=== PATIENT | female | born 1985 | race Caucasian/White ===

== ENCOUNTER → 2017-08-13 09:45 | Outpatient (CLI) | payer OTHER, SELFPAY ==
--- NOTE | 2017-08-13 09:45 | DT_ITS ---
This patient was seen during an EMR downtime August 10, 2017 - August 17, 2017. This patient may have a combination of paper and electronic documentation or all paper documentation. All documentation is viewable within the e-chart portion of [facility] for each patient visit.
[2017-08-26 09:28] LABS: HPV APTIMA, High Risk Negative (Negative); HPV Reflexed? YES, CHARGE PATIENT
== END ==
PROVIDERS: Visit Provider Nurse Practitioner Women's Health
DX: Z12.4 Encounter for screening for malignant neoplasm of cervix (principal)
CPT/HCPCS: 87624; 88175; G0145

== ENCOUNTER 2022-08-13 18:50 | Inpatient (IN) | payer OTHER, SELFPAY ==
[2022-08-13] MEDS: Lactated Ringers 1,000 ML 50 ML IV (19:30)
[2022-08-13 19:37] VITALS: BMI 31.7
[2022-08-13 20:10] VITALS: BP 149/81; PULSE 109; TEMP 36.9; O2SAT 99
[2022-08-13] MEDS: 0.9% Normal Saline Single 100 ML IV.SOLN. INTRA-UTER (20:20)
[2022-08-13] MEDS: Oxytocin 15 Units/NS 250ml 15 UNITS/250 ML IV.SOLN 2 UNITS IV (20:20)
[2022-08-13 20:47] LABS: Absolute Lymphocyte Count 2.23 X10^3/uL (0.83-4.51); Absolute Neutrophil Count 7.1 X10^3/uL (2.0-7.7); Basophil# 0.02 X10^3/uL; Basophil% 0.2 % (0-1); Eosinophil# 0.04 X10^3/uL; Eosinophils% 0.4 % (0-5); Hematocrit 33.2 % (37-47); Hemoglobin 10.9 g/dL (12.0-15.0); Lymphocyte # 2.23 X10^3/ul (0.83-4.51); Mean Corp Hgb Conc 32.8 g/dL (32-36); Mean Corpuscular Hgb 28.9 pg (27.0-32.0); Mean Corpuscular Volume 88.1 fL (81-99); Mean Platelet Vol. 10.9 fl (6.2-12.0); Monocyte# 0.69 X10^3/uL; Monocyte% 6.8 % (0-10); NRBC Flagged by Analyzer 0 % (0-5); Neutrophil # 7.12 X10^3/uL (2.7-7.7); Neutrophil % 70.1 % (47-70); POSITIVE COUNT YES; Platelet Count 234 K/mm3 (150-450); RBC Distribution Width CV 14.4 % (11.6-14.6); RBC Distribution Width SD 45.8 fl (35.1-43.9); Red Blood Count 3.77 M/mm3 (4.2-5.4); White Blood Count 10.2 K/mm3 (4.4-11.0)
[2022-08-13 21:00] LABS: Differential Indicated SCAN CRITERIA MET
[2022-08-13 21:05] VITALS: BP 137/77; PULSE 93; PULSE 99; O2SAT 94; O2SAT 97
[2022-08-13 21:17] LABS: Differential Comment SCANNED
[2022-08-13 21:24] LABS: Syphilis Antibodies Non-reactive
[2022-08-13 21:49] VITALS: O2SAT 96
[2022-08-13 21:50] VITALS: BP 142/94; PULSE 82
[2022-08-13 23:22] VITALS: TEMP 36.3; O2SAT 98
[2022-08-13 23:23] VITALS: BP 154/82; PULSE 77
[2022-08-14] VITALS (51 sets, daily range): BP systolic 112–160; BP diastolic 56–94; PULSE 84–126; RESP 16–18; TEMP 36.2–37.4; O2SAT 79–99
[2022-08-14] MEDS: LACTATED RINGERS 500 ML 999 ML IV (07:45)
[2022-08-14] MEDS: fentaNYL-bupivacaine (epidural) 100 ML BAG EPIDURAL ×3 (08:29→17:58)
[2022-08-14] MEDS: Lactated Ringers 1,000 ML 200 ML IV ×3 (08:30→19:34)
--- NOTE | 2022-08-14 09:42 | PCM.HP.OB ---
[facility] - General General Date of Admission: 08/13/22 Date of Service: 08/13/22 Chief Complaint: HPI Narrative ELVIN DAVILA, is a 37 F 2 para 0-0-1-0 who presented at 38-0/7 weeks with gestational hypertension. She presented from the office. Preeclampsia labs were negative on 08/13/2022. She denied any headache or visual changes. She had some irregular contractions. No vaginal bleeding or leaking of fluid. Risk benefits and alternatives to induction were reviewed and she agreed to return at 7 PM for induction of labor complicated to date by gestational hypertension, advanced maternal age, she had a low-lying placenta earlier in the but that has resolved. He also had some vaginal bleeding earlier in and COVID-19 during her . Maternal Data Information Final DEBBIE: 08/27/22 Gestational age: 38 0/7 [facility] Medical History (Updated 08/14/22 @ 09:[address] Carolyne Packer MD) Gestational HTN Placental abnormality Home Medications 1 cap DAILY Check with primary doctor 08/13/22 [History Last Taken 08/13/22 12:00 1 cap] Zofran 4 mg PRN PRN Nausea 08/13/22 [History Last Taken Unknown] desogestrel-e.estradiol 0.15 mg-0.02 mg(21)/e.estrad 0.01 mg(5) tablet (Viorele (28)) 1 tab PO QDAY Check with primary doctor 08/13/22 [History Last Taken Unknown] iron 325 mg BID Check with primary doctor 08/13/22 [History Last Taken 08/12/22 08:00 1 tab] Allergy/AdvReac Type Severity Reaction Status Date / Time clobetasol Allergy Swelling Verified 08/13/22 19:43 Surgical History (Updated 08/13/22 @ 19:42 by Marianela Hope) History of surgery Social History Smoking Status: Never smoker History Elective abortions Hx Para 0 Spontaneous abortions Hx # Term Pregnancies Ectopic pregnancies Hx # Pregnancies Multiple births # of living children ROS Constitutional Constitutional: Denies fatigue, fever(s) or malaise Eyes Eyes: Denies change in vision ENT HEENT: Denies dizziness or headache(s) Cardiovascular Cardiovascular: Denies chest pain, dyspnea or lightheadedness Respiratory/Chest Respiratory/Chest: Denies cough or dyspnea Gastrointestinal Gastrointestinal: Denies change in bowel habits Genitourinary Genitourinary: Denies burning urination or genital lesions Integumentary Integumentary: Denies rash Neurologic Neurologic: Denies confusion, dizziness, headache(s), numbness or weakness Vital Signs Vital Signs Vital Signs: 08/13/22 20:10 08/13/22 20:10 08/13/22 20:10 Temperature Temperature Source Tympanic Pulse Rate 109 H Blood Pressure 149/81 H BP Systolic 149 BP Diastolic 81 Pulse Ox 08/13/22 20:10 08/13/22 20:10 08/13/22 21:05 Temperature 98.5 F Temperature Source Pulse Rate Blood Pressure 137/77 H BP Systolic 137 BP Diastolic 77 Pulse Ox 99 08/13/22 21:05 08/13/22 21:05 08/13/22 21:05 Temperature Temperature Source Pulse Rate 99 93 Blood Pressure BP Systolic BP Diastolic Pulse Ox 94 08/13/22 21:05 08/13/22 21:50 08/13/22 21:50 Temperature Temperature Source Pulse Rate 82 Blood Pressure 142/94 H BP Systolic 142 BP Diastolic 94 Pulse Ox 97 08/13/22 21:49 08/13/22 23:22 08/13/22 23:23 Temperature Temperature Source Temporal Pulse Rate Blood Pressure 154/82 H BP Systolic 154 BP Diastolic 82 Pulse Ox 96 08/13/22 23:23 08/13/22 23:22 08/13/22 23:22 Temperature 97.3 F L Temperature Source Pulse Rate 77 Blood Pressure BP Systolic BP Diastolic Pulse Ox 98 08/14/22 00:08 08/14/22 00:08 08/14/22 00:08 Temperature Temperature Source Pulse Rate 84 89 Blood Pressure 122/72 H BP Systolic 122 BP Diastolic 72 Pulse Ox 08/14/22 00:08 08/14/22 01:15 08/14/22 01:15 Temperature Temperature Source Pulse Rate 86 Blood Pressure 122/58 H BP Systolic 122 BP Diastolic 58 Pulse Ox 98 08/14/22 01:15 08/14/22 01:15 08/14/22 01:15 Temperature 98.0 F Temperature Source Tympanic Pulse Rate Blood Pressure BP Systolic BP Diastolic Pulse Ox 97 08/14/22 02:15 08/14/22 02:15 08/14/22 02:15 Temperature Temperature Source Pulse Rate 96 Blood Pressure 116/62 BP Systolic 116 BP Diastolic 62 Pulse Ox 97 08/14/22 02:15 08/14/22 02:15 08/14/22 02:15 Temperature 98.1 F Temperature Source Tympanic Pulse Rate Blood Pressure BP Systolic BP Diastolic Pulse Ox 97 08/14/22 03:03 08/14/22 03:03 08/14/22 03:03 Temperature Temperature Source Tympanic Pulse Rate 106 H Blood Pressure 113/74 BP Systolic 113 BP Diastolic 74 Pulse Ox 08/14/22 03:03 08/14/22 03:03 08/14/22 04:04 Temperature 97.7 F L Temperature Source Temporal Pulse Rate Blood Pressure BP Systolic BP Diastolic Pulse Ox 96 08/14/22 04:04 08/14/22 04:04 08/14/22 04:04 Temperature Temperature Source Pulse Rate 103 H Blood Pressure 124/81 H BP Systolic 124 BP Diastolic 81 Pulse Ox 95 08/14/22 04:04 08/14/22 05:24 08/14/22 05:24 Temperature 98.5 F Temperature Source Pulse Rate 102 H Blood Pressure 118/64 BP Systolic 118 BP Diastolic 64 Pulse Ox 08/14/22 05:24 08/14/22 05:24 08/14/22 05:24 Temperature 98.3 F Temperature Source Tympanic Pulse Rate Blood Pressure BP Systolic BP Diastolic Pulse Ox 97 08/14/22 06:05 08/14/22 06:05 08/14/22 06:05 Temperature Temperature Source Tympanic Pulse Rate 110 H Blood Pressure 133/81 H BP Systolic 133 BP Diastolic 81 Pulse Ox 08/14/22 06:05 08/14/22 06:05 08/14/22 07:09 Temperature 98.3 F Temperature Source Pulse Rate Blood Pressure 120/69 BP Systolic 120 BP Diastolic 69 Pulse Ox 97 08/14/22 07:09 08/14/22 07:09 08/14/22 07:09 Temperature 99.0 F Temperature Source Temporal Pulse Rate 110 H Blood Pressure BP Systolic BP Diastolic Pulse Ox 08/14/22 08:14 08/14/22 08:14 08/14/22 08:16 Temperature Temperature Source Pulse Rate 114 H Blood Pressure 143/89 H BP Systolic 143 BP Diastolic 89 Pulse Ox 99 08/14/22 08:16 08/14/22 08:19 08/14/22 08:19 Temperature Temperature Source Pulse Rate 117 H 107 H Blood Pressure BP Systolic BP Diastolic Pulse Ox 99 08/14/22 08:22 08/14/22 08:22 08/14/22 08:24 Temperature Temperature Source Pulse Rate 118 H 123 H Blood Pressure 133/77 H BP Systolic 133 BP Diastolic 77 Pulse Ox 08/14/22 08:24 08/14/22 08:27 08/14/22 08:27 Temperature Temperature Source Pulse Rate 121 H Blood Pressure 141/78 H BP Systolic 141 BP Diastolic 78 Pulse Ox 99 08/14/22 08:29 08/14/22 08:29 08/14/22 08:31 Temperature Temperature Source Pulse Rate 122 H Blood Pressure 127/68 H BP Systolic 127 BP Diastolic 68 Pulse Ox 97 08/14/22 08:31 08/14/22 08:34 08/14/22 08:34 Temperature Temperature Source Pulse Rate 120 H 123 H Blood Pressure BP Systolic BP Diastolic Pulse Ox 97 08/14/22 08:36 08/14/22 08:36 08/14/22 08:39 Temperature Temperature Source Pulse Rate 121 H 125 H Blood Pressure 130/69 H BP Systolic 130 BP Diastolic 69 Pulse Ox 08/14/22 08:39 08/14/22 08:41 08/14/22 08:41 Temperature Temperature Source Pulse Rate 114 H Blood Pressure 119/66 BP Systolic 119 BP Diastolic 66 Pulse Ox 97 08/14/22 08:44 08/14/22 08:44 08/14/22 08:46 Temperature Temperature Source Pulse Rate 116 H Blood Pressure 120/67 BP Systolic 120 BP Diastolic 67 Pulse Ox 97 08/14/22 08:46 08/14/22 08:49 08/14/22 08:49 Temperature Temperature Source Pulse Rate 117 H 118 H Blood Pressure BP Systolic BP Diastolic Pulse Ox 97 08/14/22 08:52 08/14/22 08:52 08/14/22 09:32 Temperature Temperature Source Pulse Rate 117 H Blood Pressure 129/79 H 114/61 BP Systolic 129 114 BP Diastolic 79 61 Pulse Ox 08/14/22 09:32 08/14/22 09:32 08/14/22 09:32 Temperature Temperature Source Temporal Pulse Rate 107 H Blood Pressure BP Systolic BP Diastolic Pulse Ox 79 08/14/22 09:32 Temperature 97.1 F L Temperature Source Pulse Rate Blood Pressure BP Systolic BP Diastolic Pulse Ox Weight Weight: 73.7 kg Body Mass Index (BMI) 31.7 Physical Exam Const alert and no apparent distress General Appearance: cooperative HEENT normocephalic Resp normal respiratory effort Cardio regular rate GI soft to palpation GI Narrative: gravid, nontender, appropriate for gestational age Extremity no calf tenderness General Extremity: edema Skin no wounds Rashes: No rashes noted Psych activity/motor behavior normal Labs Labs Labs: Blood Type A POSITIVE Antibody Screen NEGATIVE Hct 33.2 % (37-47) L Hgb 10.9 g/dL (12.0-15.0) L Pap Smear Negative Syphilis Total Ab Non-reactive VZV IgG Antibody 0.99 index (Immune >1.09-) L Rubella IgG Antibody 63.6 IU/mL Assessment & Plan (1) 38 weeks gestation of : PLAN: Risk benefits and alternatives to induction of labor, discussed with the patient, her questions were answered to her satisfaction she desires to proceed. No evidence of preeclampsia at this time. Will monitor closely. Estimated weight is less than 4500 g and pelvis clinically adequate to expect vaginal delivery. Velazquez catheter placed at approximately 8:15 PM on 08/13/2022. Velazquez catheter placed over the cervix in the usual sterile fashion and Velazquez bulb inflated to 30 cc. Patient and fetus tolerated the procedure well. (2) Gestational HTN: (3) Nulliparity:
[2022-08-14] MEDS: Oxytocin 15 Units/NS 250ml 15 UNITS/250 ML IV.SOLN 18 UNITS IV (17:13)
[2022-08-14] MEDS: Acetaminophen 500 MG Tablet PO (19:27)
[2022-08-14] MEDS: Sodium Citrate/Citric Acid 30 ML UDC PO (19:27)
[2022-08-14] MEDS: Cefazolin 2 GM in 0.9% Normal Saline 100 ML IV (19:29)
[2022-08-14] MEDS: miSOPROStol 200 MCG Tablet 1000 MCG RC (20:07)
--- NOTE | 2022-08-14 20:40 | OP.PCM_ITS ---
Maternal Data Information Final DEBBIE: 08/27/22 Gestational age: 38&1 Details Operative Information Pre-Operative Diagnosis: (1) Failure to dilate (2) Gestational hypertension Post-Operative Diagnosis: Same Indications Narrative: The patient was taken to the operating room where epidural anesthesia was dosed & found to be adequate. She was prepped and draped in the dorsal supine position with a leftward tilt. A Pfannenstiel skin incision was made approximately 2 cm above the symphysis pubis and carried through to the underlying fascia with the scalpel. The fascia was incised incised in the midline and extended laterally with the Marques scissors. The rectus muscles were in the midline and the peritoneum was entered carefully and bluntly. The peritoneal incision was stretched and the bladder blade was inserted. Vesicouterine peritoneum was tented up, incised & then bladder flap created gently. The uterine incision was made in a low transverse fashion with the scalpel and extended superiorly and inferiorly with blunt dissection. The infant's head was brought to the incision in the flexed position and delivered without difficulty. The head was gently guided to allow delivery of the anterior and posterior shoulders. The body then delivered with fundal pressure in the standard fashion. The 3VC cord was clamped and cut in delayed fashion. The was handed off to the waiting pediatric pathologist. The placenta was delivered with fundal massage and gentle traction in the standard fashion. The uterus was exteriorized and cleared of clots and debris. The uterine incision was closed with #1 Vicryl suture in a running locked fashion. Monocryl suture was used in an imbricating fashion. The incision was examined and was found to be hemostatic. The uterus was returned to the abdominal cavity. After irrigating Nitza was placed over the uterine incision as some areas were denuded (but hemostatic). The peritoneum was closed with vicryl suture in running fashion The rectus muscle was examined and any bleeding was Bovie cauterized. The fascia was closed with PDS suture in a running standard fashion. The subcutaneous tissue was examining and any bleeding was Bovie cauterized. The subcutaneous tissue was reapproximated with interrupted sutures. The skin was closed in a subcuticular fashion by the ASSISTANT MEDIA PLANNER while I was present in the labor & delivery unit. The remainder of the procedure was performed by me with assistance. All sponge, lap, and needle counts were correct. The patient was taken to her room for recovery in a stable condition. 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 #1: Nida Tracy Type of Anesthesia: Epidural Antibiotic Given: Ancef 2 grams IV x1 and Zithromax 500 mg/5 mL X1 Drain: Velazquez to straight drain Estimated Blood Loss: 1000ml Fluids Replaced: 1500ml Procedure Start Time: 19:58 Procedure Stop Time: 20:45 Findings Description of Procedure: Normal maternal uterus and adnexa Presentation: Positive for Vertex Amniotic Membrane Rupture Type: Artificial Amniotic Fluid Description: Clear Placental Delivery Description: Expressed Placenta Disposition: [facility] Cord Vessel Description: 3 Vessels Cord Entanglement: - (around the body x1, loose) A Gender: Male (1 minute): 8 (5 minute): 9 Delayed Cord Clamping: Yes Complications Complications: None
[2022-08-14] MEDS: Oxytocin 15 Units/NS 250ml 15 UNITS/250 ML IV.SOLN 83 UNITS IV (21:00)
[2022-08-14] MEDS: Ketorolac 30 MG/ML Syringe IV (22:25)
[2022-08-14] MEDS: Lactated Ringers 1,000 ML 100 ML IV (23:57)
[2022-08-15] VITALS (7 sets, daily range): BP systolic 106–150; BP diastolic 55–89; PULSE 90–111; RESP 15–18; TEMP 36.2–37.1; O2SAT 96–99
--- NOTE | 2022-08-15 00:07 | NURSING ---
8590 Epidural cath removed, tip intact
[2022-08-15] MEDS: Acetaminophen 500 MG Tablet 1000 MG PO ×4 (01:21→20:51)
[2022-08-15] MEDS: 0.9% Saline Lock 10 ML Syringe IV ×3 (05:11→10:36)
[2022-08-15 05:14] LABS: Hematocrit 30.1 % (37-47); Hemoglobin 10.1 g/dL (12.0-15.0); Mean Corp Hgb Conc 33.6 g/dL (32-36); Mean Corpuscular Hgb 29.1 pg (27.0-32.0); Mean Corpuscular Volume 86.7 fL (81-99); Mean Platelet Vol. 9.5 fl (6.2-12.0); Platelet Count 189 K/mm3 (150-450); RBC Distribution Width CV 14.3 % (11.6-14.6); RBC Distribution Width SD 44.8 fl (35.1-43.9); Red Blood Count 3.47 M/mm3 (4.2-5.4); White Blood Count 15.9 K/mm3 (4.4-11.0)
[2022-08-15] MEDS: Ketorolac 30 MG/ML Syringe IV (05:15)
--- NOTE | 2022-08-15 08:40 | PCM.PN.OB ---
Subjective Subjective Patient seen at bedside. Sitting in chair at bedside feeling infant. Denies any pain. Ambulating and voiding without difficulty. Denies headache, vision changes, SOB, RUQ pain or CP. Desires discharge home tomorrow. Objective Data Objective Data Vital Signs: Vital Signs Temp Pulse Resp BP Pulse Ox O2 Del Method 97.5 F L 107 H 18 128/85 H 97 Room Air 08/15/22 07:35 08/15/22 07:35 08/15/22 07:35 08/15/22 07:35 08/15/22 07:35 08/15/22 07:35 Oxygen Delivery Method Room Air Weight: 162 lb 7.691 oz Body Mass Index (BMI) 31.7 Intake & Output: Intake and Output for Last 24 Hours 08/13/22 08/14/22 08/15/22 23:59 23:59 23:59 Intake Total 12.87 / 12.87 7488.28 / 7488.28 371.67 / 371.67 Output Total 4100 / 4100 1400 / 1400 Balance 12.87 / 12.87 3388.28 / 3388.28 -1028.33 / -1028.33 Lab / Micro Data Result Diagrams: 08/15/22 05:05 Labs: Laboratory Results - last 24 hr 08/15/22 05:05: WBC 15.9 H, RBC 3.47 L, Hgb 10.1 L, Hct 30.1 L, MCV 86.7, MCH 29.1, MCHC 33.6, RDW Std Deviation 44.8 H, RDW Coeff of César 14.3, Plt Count 189, MPV 9.5 ROS Eyes Eyes: Denies blurry vision, change in vision or spots in vision ENT HEENT: Denies dizziness or headache(s) Cardiovascular Cardiovascular: Denies abdominal pain, chest pain or dyspnea Respiratory/Chest Respiratory/Chest: Denies cough, dyspnea, shortness of breath at rest or shortness of breath with exertion Gastrointestinal Gastrointestinal: Denies abdominal pain, diarrhea or vomiting Genitourinary Genitourinary: Denies change in urinary stream, difficulty urinating or dysuria Musculoskeletal Musculoskeletal: Reports none Integumentary Integumentary: Denies rash Neurologic Neurologic: Denies dizziness, headache(s), memory loss or weakness Physical Exam Narrative Dressing is dry and intact Const alert and no apparent distress General Appearance: cooperative and comfortable Exam Limitations: no limitations HEENT normocephalic Eyes General Eye: normal appearance of both eyes Neck full ROM General: normal visual inspection Chest Chest: symmetrical chest wall rise Resp normal respiratory effort and normal air movement Effort and Inspection: symmetric chest movement Auscultation: clear to auscultation bilaterally Cardio regular rate and regular rhythm GI normal to inspection, nondistended, normoactive bowel sounds Back/Spine normal ROM Extremity full ROM and no calf tenderness General Extremity: normal exam except as noted Skin no rashes or lesions noted Neuro CN's II-XII intact bilaterally Psych mental status grossly normal Assessment & Plan (1) Gestational HTN: (2) Status post primary low transverse section: (3) Care and examination of lactating mother: PLAN: Plan POD 1 Primary C/S BP stable Pain control support
[2022-08-15] MEDS: Enoxaparin 40 MG/0.4 ML Syringe SC (10:37)
[2022-08-15] MEDS: Senna/Docusate Sodium 1 Tablet PO (10:38)
[2022-08-15] MEDS: Ibuprofen 600 MG Tablet PO ×3 (12:58→23:47)
[2022-08-16 02:04] VITALS: BP 107/62; PULSE 100; RESP 16; TEMP 37.1
[2022-08-16] MEDS: Acetaminophen 500 MG Tablet 1000 MG PO ×2 (03:08→09:36)
[2022-08-16] MEDS: Ibuprofen 600 MG Tablet PO (06:24)
[2022-08-16 08:10] VITALS: BP 112/68; PULSE 82; RESP 16; TEMP 36.6; O2SAT 98
--- NOTE | 2022-08-16 08:49 | DS.PCM_ITS ---
Providers Date of Admission: 08/13/22 Primary Care Physician: Dr. Gary Peters MD Reason For Visit: C SECTION Diagnosis Discharge Diagnosis (1) Gestational HTN: Status: Acute Code(s): O13.9 - Gestational [-induced] hypertension without significant protein uria, unspecified trimester (2) Status post primary low transverse section: Status: Acute Code(s): Z98.891 - History of uterine scar from previous surgery (3) Care and examination of lactating mother: Status: Acute Code(s): Z39.1 - Encounter for care and examination of lactating mother Plan Pain controlled Breast feeding with minimal support No severe BP levels Desires discharge home today with follow up in office this week for incision/bp check Medications at Discharge Home Medications 1 cap DAILY Check with primary doctor 08/13/22 iron 325 mg BID Check with primary doctor 08/13/22 acetaminophen 500 mg tablet 1,000 mg PO Q6H #0 tabs 08/16/22 ibuprofen 600 mg tablet 600 mg PO Q6 #0 tabs 08/16/22 sennosides 8.6 mg-docusate sodium 50 mg tablet (Stool Softener-Stimulant Laxative) 1 - 2 tab PO DAILY #0 tabs 08/16/22 Hospital Course Operations section Summary of Care Provided Hospital Course: Patient had primary section. Hospital course was uneventful. Physical Exam Narrative Patient seen at bedside. Feeling good. Denies any headache, vision changes, RUQ pain, SOB , or CP. Ambulating and voiding without difficulty. Requesting discharge home today Const alert and no apparent distress General Appearance: cooperative and comfortable Exam Limitations: no limitations HEENT normocephalic Eyes General Eye: normal appearance of both eyes Neck full ROM General: normal visual inspection Chest Chest: symmetrical chest wall rise Resp normal respiratory effort and normal air movement Effort and Inspection: symmetric chest movement Auscultation: clear to auscultation bilaterally Cardio regular rate and regular rhythm GI normal to inspection, nondistended, normoactive bowel sounds Back/Spine normal ROM Extremity full ROM and no calf tenderness General Extremity: normal exam except as noted Skin no rashes or lesions noted Neuro CN's II-XII intact bilaterally Psych mental status grossly normal Weight / BMI Weight Weight: 162 lb 7.691 oz Body Mass Index (BMI) 31.7 ABG / Lab / Microbiology Data Result Diagrams: 08/15/22 05:05 D/C Instructions Discharge Diet: No restrictions Discharge Activity: May Drive (2 weeks) and May Shower May resume sexual activity in: 6-8 weeks Weight Bearing Status: Weight bearing as tolerated Call your doctor if your incision/area has: Continuous Slow Oozing, Sudden Increased Bleeding, Increased Pain/ Swelling, Increased Redness, Foul Smelling Discharge and Swelling at the incision site Call your doctor if you observe: Fever of 101 or Higher, Numbness or Tingling, Using more than 1 pad per hour, Shortness of breath, Dizziness, Swelling in the ankles, Chest pain, Calf discomfort and Uncontrolled pain Suture Line Care: Avoid Pulling/Pushing Change Dressing in: leave in place till F/U Remove Dressing in: leave until fall off When: 1 week for incision check Meaningful Use Info Meaningful Use Diagnoses (Choose all that apply): None applicable Discharge Plan Admission Admit Date/Time: 08/13/22 18:50 Primary Reason for Your Visit: Labor and Delivery Attending Provider: Maggie Rice Primary Care Provider: Gary Peters Discharge Orders/Prescriptions Prescriptions: New acetaminophen 500 mg Tablet 1,000 mg PO Q6H Qty: 0 0RF sennosides-docusate sodium [Stool Softener-Stimulant Laxat] 8.6-50 mg Tablet 1 - 2 tab PO DAILY Qty: 0 0RF ibuprofen 600 mg Tablet 600 mg PO Q6 Qty: 0 0RF Continued 1 cap DAILY iron tablet 325 mg BID Discontinued Zofran 4 mg PRN PRN (Reason: Nausea) desog-e.estradiol/e.estradiol [Viorele (28)] 0.15-0.02 mgx21 /0.01 mg x 5 tablet 1 tab PO QDAY Referrals / Follow Up: Gary Peters MD [Primary Care Provider] - Disposition Disposition (needs filled in before D/C Order can be placed): Home, Self Care
[2022-08-16] MEDS: Senna/Docusate Sodium 1 Tablet PO (09:36)
== END 2022-08-16 10:25 | disposition home or self-care (01) | DRG 788 ==
PROVIDERS: Obstetrics & Gynecology; Admitting Provider Obstetrics & Gynecology; PCP Family Medicine Geriatric Medicine; Visit Provider Obstetrics & Gynecology
DX: O62.0 Primary inadequate contractions (principal); O13.4 Gestational [pregnancy-induced] hypertension without significant proteinuria, complicating childbirth; Z37.0 Single live birth; Z3A.38 38 weeks gestation of pregnancy; Z86.16 Personal history of COVID-19
CPT/HCPCS: 59025; 59050; 85025; 85027; 86780; 86850; 86900; 86901; 99221; J7120; A4216; G0378

== ENCOUNTER 2024-03-16 17:02 | Outpatient (CLI) | payer OTHER, SELFPAY ==
[2024-03-16] VITALS (8 sets, daily range): BP systolic 134–153; BP diastolic 74–88; PULSE 69–94
--- NOTE | 2024-03-16 17:39 | OB.TRI.NOTE ---
HPI - General General Date of Admission: 03/16/24 Date of Service: 03/16/24 Chief Complaint: HTN HPI Narrative ELVIN DVAILA, is a 39 F who presents from the office with elevated BP. Hx of pre E in prior at 38 weeks. Mild range BPs in triage. No ROLLINS. Pr/cr TNP. LFTs wnl. Mets criteria for GHTN. Reviewed BMZ given early gestational age. Will start daily Procardia and daily BP monitoring. Frequent ctx that are non painful. States they occur every night. Good movement no LOF or bleeding. Needs weekly NSTs. Growth US already planned. BP check in office next week. Patient to call with elevated BP at home or s/s or PreE Maternal Data Information Final DEBBIE: 04/[birth year]24 Gestational age: 34+5 PFSH PFSH Medical History Care and examination of lactating mother Nulliparity 38 weeks gestation of Placental abnormality Gestational HTN Home Medications ?Medication ?Instructions ?Recorded ?Last Taken ?Type 1 cap DAILY Check with primary 08/13/22 08/13/22 12:00 History doctor 1 cap iron 325 mg BID Check with primary 08/13/22 08/12/22 08:00 History doctor 1 tab acetaminophen 500 mg tablet 1,000 mg (2 x 500 mg) PO Q6H #0 08/16/22 Unknown Rx tabs ibuprofen 600 mg tablet 600 mg PO Q6 #0 tabs 08/16/22 Unknown Rx sennosides 8.6 mg-docusate sodium 1 - 2 tab PO DAILY #0 tabs 08/16/22 Unknown Rx 50 mg tablet (Stool Softener-Stimulant Laxative) Allergy/AdvReac Type Severity Reaction Status Date / Time clobetasol Allergy Swelling Verified 08/13/22 19:43 Surgical History Status post primary low transverse section History of surgery Social History Smoking Status: Never smoker History 2 Elective abortions Hx Para 1 Spontaneous abortions Hx # Term Pregnancies Ectopic pregnancies Hx # Pregnancies Multiple births # of living children ROS Constitutional Constitutional: Denies fatigue, fever(s) or malaise Eyes Eyes: Denies change in vision ENT HEENT: Denies dizziness or headache(s) Cardiovascular Cardiovascular: Denies chest pain, dyspnea or lightheadedness Respiratory/Chest Respiratory/Chest: Denies cough or dyspnea Gastrointestinal Gastrointestinal: Denies change in bowel habits Genitourinary Genitourinary: Denies burning urination or genital lesions Integumentary Integumentary: Denies rash Neurologic Neurologic: Denies confusion, dizziness, headache(s), numbness or weakness Physical Exam Const alert and no apparent distress General Appearance: cooperative HEENT normocephalic Resp normal respiratory effort GI soft to palpation GI Narrative: gravid, nontender, appropriate for gestational age Extremity no calf tenderness General Extremity: edema Skin no wounds Rashes: No rashes noted Psych activity/motor behavior normal NST FHR Rate Baby A Baseline: 145 Variability:: Moderate Accelerations:: 15 x 15 Decelerations:: None NST Reactive:: Yes FHR Category:: Category I Uterine Activity:: frequent non painful Assessment & Plan (1) 34 weeks gestation of : (2) Gestational hypertension affecting second : PLAN: Plan BP monitoring BMZ x 2 Procardia daily Weekly NST Growth US precautions reviewed
[2024-03-16 18:12] LABS: Creatinine, Urine (random) < 13.00 mg/dL (NO RANGE EST.); Protein, Urine (Random) < 6.0 mg/dL (<11.9)
[2024-03-16 18:14] LABS: Hematocrit 32.6 % (37-47); Hemoglobin 11.6 g/dL (12.0-15.0); Mean Corp Hgb Conc 35.6 g/dL (32-36); Mean Corpuscular Hgb 28.6 pg (27.0-32.0); Mean Corpuscular Volume 80.5 fL (81-99); Mean Platelet Vol. 10.2 fl (6.2-12.0); Platelet Count 258 K/mm3 (150-450); RBC Distribution Width CV 13.6 % (11.6-14.6); RBC Distribution Width SD 39.9 fl (35.1-43.9); Red Blood Count 4.05 M/mm3 (4.2-5.4); White Blood Count 9.1 K/mm3 (4.4-11.0)
[2024-03-16 18:55] LABS: LDH 306 U/L (84-246)
[2024-03-16 18:59] LABS: AST(SGOT) 24 U/L (15-37); Alanine Aminotransfer ALT/SGPT 35 U/L (13-56); Creatinine, Serum 0.45 mg/dL (0.55-1.02); EST Glomerular Filtration Rate 165 mL/min (>60); Est Glom Filt Rate - Afr Amer 199 mL/min (>60); Uric Acid 6.4 mg/dL (2.6-6.0)
[2024-03-16] MEDS: NIFEdipine 30 MG Tablet PO (19:36)
[2024-03-16] MEDS: Betamethasone/Betamethasone 30 MG/5 ML Vial 12 MG IM (19:36)
== END 2024-03-16 20:00 | disposition home or self-care (01) ==
LOC: WPOUT 17:08 → WP 17:27
PROVIDERS: PCP Family Medicine Geriatric Medicine; Referring Provider Obstetrics & Gynecology; Visit Provider Obstetrics & Gynecology
DX: O13.3 Gestational [pregnancy-induced] hypertension without significant proteinuria, third trimester (principal); Z3A.34 34 weeks gestation of pregnancy
CPT/HCPCS: 59050; 82565; 82570; 83615; 84156; 84450; 84460; 84550; 85027; 99221; G0378; J0702

== ENCOUNTER 2024-03-17 19:38 | Outpatient (CLI) | payer OTHER, SELFPAY ==
[2024-03-17] MEDS: Betamethasone/Betamethasone 30 MG/5 ML Vial 12 MG IM (19:52)
== END 2024-03-17 19:55 | disposition home or self-care (01) ==
LOC: WPOUT 19:39 → WP 19:40
PROVIDERS: PCP Family Medicine Geriatric Medicine; Referring Provider Obstetrics & Gynecology; Visit Provider Obstetrics & Gynecology
DX: O13.3 Gestational [pregnancy-induced] hypertension without significant proteinuria, third trimester (principal); Z3A.34 34 weeks gestation of pregnancy
CPT/HCPCS: 99221; G0378; J0702

== ENCOUNTER 2024-03-19 22:08 | Outpatient (CLI) | payer OTHER, SELFPAY ==
[2024-03-19 22:19] VITALS: BMI 31.8
[2024-03-19 22:34] VITALS: BP 135/84; PULSE 86; PULSE 91; RESP 24; TEMP 36.8; O2SAT 97
[2024-03-19] MEDS: 0.9% Saline Lock 10 ML Syringe IV (22:40)
[2024-03-19 22:49] VITALS: BP 123/81; PULSE 97
[2024-03-19 22:56] LABS: Bacteria 0 SEEN /hpf (None Seen); Mucous, Urine 0 SEEN /hpf (<or=2+); Red Blood Cells-Urine 0 SEEN /hpf (0-5); White Blood Cells 0 SEEN /hpf (0-5)
[2024-03-19 22:59] LABS: Hematocrit 31.6 % (37-47); Hemoglobin 10.8 g/dL (12.0-15.0); Mean Corp Hgb Conc 34.2 g/dL (32-36); Mean Corpuscular Hgb 29.1 pg (27.0-32.0); Mean Corpuscular Volume 85.2 fL (81-99); Mean Platelet Vol. 10.2 fl (6.2-12.0); Platelet Count 270 K/mm3 (150-450); RBC Distribution Width CV 13.8 % (11.6-14.6); RBC Distribution Width SD 42.7 fl (35.1-43.9); Red Blood Count 3.71 M/mm3 (4.2-5.4); White Blood Count 10.8 K/mm3 (4.4-11.0)
[2024-03-19 23:00] LABS: Color, Urine Straw (Yellow); Glucose, Dipstick Normal (Normal); Ketone-Dipstick Negative (Negative); Leukocyte Esterase-Dipstick 25 /ul (Negative); Nitrite-Dipstick Negative (Negative); Occult Blood-Urine Negative /ul (Negative); Protein-Dipstick Negative (Negative); Specific Gravity, Urine 1.005 (1.002-1.030); Urine Bilirubin Dipstick Negative (Negative); Urine Clarity Sl. Cloudy (Clear); Urine Urobilinogen Normal (Normal)
[2024-03-19 23:04] VITALS: BP 114/69; PULSE 77
[2024-03-19 23:08] LABS: Squamous Epithelial Cells - UA 0-5 SEEN /hpf (5-10)
[2024-03-19 23:14] LABS: Protein, Urine (Random) 6.2 mg/dL (<11.9); Protein:Creat Ratio 400 mg/g CRE (0-200)
[2024-03-19 23:14] LABS: AST(SGOT) 18 U/L (15-37); Alanine Aminotransfer ALT/SGPT 30 U/L (13-56); Creatinine, Serum 0.62 mg/dL (0.55-1.02); EST Glomerular Filtration Rate 116 mL/min (>60); Est Glom Filt Rate - Afr Amer 140 mL/min (>60); Estimated Creatinine Clearance 108.56 ml/min; LDH 159 U/L (84-246); Uric Acid 5.6 mg/dL (2.6-6.0)
[2024-03-19 23:16] LABS: International Normalized Ratio 0.8; Partial Thromboplast Time 21.3 Seconds (24.1-36.2); Prothrombin Time (Protime)PT. 11.7 SECONDS (11.7-14.9)
[2024-03-19 23:19] VITALS: BP 120/68; PULSE 72
--- NOTE | 2024-03-20 07:28 | OB.TRI.HP_ITS ---
HPI - General HPI Narrative ELVIN DAVILA, is a 39 F who presents for elevated blood pressures at home. Maternal Data Information DEBBIE Calculator Estimated Delivery Date Method Current WG Current Estimate 04/22/24 Manual 35w 2d [facility] Medical History Care and examination of lactating mother Nulliparity 38 weeks gestation of Placental abnormality Gestational HTN Home Medications ?Medication ?Instructions ?Recorded ?Last Taken ?Type 1 cap PO DAILY Check with primary 08/13/22 03/19/24 12:00 History doctor iron 325 mg PO BID Check with primary 08/13/22 03/18/24 21:00 History doctor acetaminophen 500 mg tablet 1,000 mg (2 x 500 mg) PO Q6H #0 08/16/22 Unknown Rx tabs aspirin 81 mg capsule 81 mg PO DAILY 03/19/24 03/19/24 07:00 History nifedipine 30 mg tablet,extended 30 mg PO DAILY 03/19/24 03/19/24 07:00 History release 24 hr (Procardia XL) Allergy/AdvReac Type Severity Reaction Status Date / Time clobetasol Allergy Swelling Verified 03/19/24 22:26 Surgical History Status post primary low transverse section History of surgery Social History Smoking Status: Never smoker History 2 Elective abortions Hx Para 1 Spontaneous abortions Hx # Term Pregnancies Ectopic pregnancies Hx # Pregnancies Multiple births # of living children ROS Eyes Eyes: Denies blurry vision Cardiovascular Cardiovascular: Reports none; Denies chest pain at rest, chest pain with activity or dizziness Respiratory/Chest Respiratory/Chest: Denies cough or dyspnea Gastrointestinal Gastrointestinal: Reports none and other; Denies diarrhea or vomiting Genitourinary Genitourinary: Denies dysuria Musculoskeletal Musculoskeletal: Reports none Integumentary Integumentary: Reports none; Denies rash Neurologic Neurologic: Denies dizziness, headache(s) or other visual disturbances Psychiatric Psychiatric: Reports none Physical Exam Const alert and no apparent distress General Appearance: cooperative Orientation / Consciousness: awake Exam Limitations: no limitations HEENT normocephalic Eyes General Eye: normal appearance of both eyes Neck full ROM Chest inspection of chest normal Resp normal respiratory effort and normal air movement Effort and Inspection: symmetric chest movement Auscultation: clear to auscultation bilaterally Cardio regular rate GI soft to palpation, non-tender and non-distended Inspection: and other Back/Spine normal ROM Extremity full ROM, normal capillary refill and no calf tenderness Skin no rashes or lesions noted Neuro oriented x3 and CN's II-XII intact bilaterally Psych mental status grossly normal NST FHR Rate Baby A Baseline: 140 Variability:: Moderate Accelerations:: 15 x 15 Decelerations:: None NST Reactive:: Yes Assessment & Plan (1) Gestational hypertension affecting second : (2) 35 weeks gestation of : PLAN: Plan PIH labs stable BP stable- no severe ranges Denies headache, vision changes, SOB, CP or RUQ pain D/C home with follow up in office this week Continue monitoring BP at home with parameters given
== END 2024-03-19 23:38 | disposition home or self-care (01) ==
LOC: WPOUT 22:14 → WP 22:14
PROVIDERS: PCP Family Medicine Geriatric Medicine; Referring Provider Advanced Practice Midwife; Visit Provider Advanced Practice Midwife
DX: O13.3 Gestational [pregnancy-induced] hypertension without significant proteinuria, third trimester (principal); Z79.82 Long term (current) use of aspirin; Z3A.35 35 weeks gestation of pregnancy
CPT/HCPCS: 36415; 59025; 59050; 81001; 82565; 82570; 83615; 84156; 84450; 84460; 84550; 85027; 85610; 85730; 99221; A4216; G0378

== ENCOUNTER 2024-03-25 05:14 | Inpatient (IN) | payer OTHER, SELFPAY ==
[2024-03-25] VITALS (22 sets, daily range): BP systolic 116–142; BP diastolic 64–97; PULSE 67–96; RESP 15–23; TEMP 36–36.7; O2SAT 95–100; BMI 32.1
[2024-03-25] MEDS: Lactated Ringers 1,000 ML 999 ML IV (05:30)
[2024-03-25 05:43] LABS: Absolute Lymphocyte Count 2.49 X10^3/uL (0.83-4.51); Absolute Neutrophil Count 5.4 X10^3/uL (2.0-7.7); Basophil# 0.03 X10^3/uL; Basophil% 0.3 % (0-1); Eosinophil# 0.05 X10^3/uL; Eosinophils% 0.6 % (0-5); Hemoglobin 10.7 g/dL (12.0-15.0); Lymphocyte # 2.49 X10^3/ul (0.83-4.51); Lymphocyte % 28.9 % (19-41); Mean Corp Hgb Conc 33.4 g/dL (32-36); Mean Corpuscular Hgb 28.7 pg (27.0-32.0); Mean Corpuscular Volume 85.8 fL (81-99); Mean Platelet Vol. 11.1 fl (6.2-12.0); Monocyte# 0.64 X10^3/uL; Monocyte% 7.4 % (0-10); NRBC Flagged by Analyzer 0 % (0-5); Neutrophil # 5.39 X10^3/uL (2.7-7.7); Neutrophil % 62.5 % (47-70); POSITIVE COUNT YES; Platelet Count 202 K/mm3 (150-450); RBC Distribution Width CV 14.1 % (11.6-14.6); RBC Distribution Width SD 42.9 fl (35.1-43.9); Red Blood Count 3.73 M/mm3 (4.2-5.4); White Blood Count 8.6 K/mm3 (4.4-11.0)
[2024-03-25] MEDS: Acetaminophen 500 MG Tablet 1000 MG PO ×3 (05:46→19:41)
[2024-03-25 05:57] LABS: Differential Indicated SCAN CRITERIA MET
[2024-03-25 06:05] LABS: AST(SGOT) 11 U/L (15-37); Alanine Aminotransfer ALT/SGPT 18 U/L (13-56); Creatinine, Serum 0.47 mg/dL (0.55-1.02); EST Glomerular Filtration Rate 158 mL/min (>60); Est Glom Filt Rate - Afr Amer 191 mL/min (>60); Estimated Creatinine Clearance 143.83 ml/min; Uric Acid 6.2 mg/dL (2.6-6.0)
[2024-03-25 06:16] LABS: Bedside Glucose 80 mg/dL (74-106)
[2024-03-25 06:19] LABS: Protein, Urine (Random) 6.5 mg/dL (<11.9); Protein:Creat Ratio 247 mg/g CRE (0-200)
[2024-03-25 06:26] LABS: Syphilis Antibodies Non-reactive
[2024-03-25 06:29] LABS: Differential Comment SCANNED
[2024-03-25] MEDS: Sodium Citrate/Citric Acid 30 ML UDC PO (07:19)
[2024-03-25] MEDS: Cefazolin 2 GM in Syringe IV (07:30)
--- NOTE | 2024-03-25 07:42 | PCM.HP.BLA ---
History and Physical Date of Admission: 03/25/24 HPI: The patient is a 39 year old female presenting for pre-operative visit. She is scheduled for and tubal, for sterilization request and preeclampsia, previous c/s on 03/25/24. Procedure discussed along with risks, benefits and complications. Other alternatives discussed for management. Consent form signed? Yes. PAST MEDICAL HISTORY PAST MEDICAL HISTORY Diagnosis Date ? Antepartum anemia complicating in third trimester 06/13/2022 ? COVID-19 10/14/2021 ? Diet controlled gestational diabetes mellitus (GDM) in third trimester 02/08/2024 ? Hypercholesteremia ? Imperforate hymen ? Miscarriage PAST SURGICAL HISTORY PAST SURGICAL HISTORY Procedure Laterality Date ? DELIVERY ONLY 08/14/2022 LTCS ? IPAS ASPIRATOR 10/25/2021 Missed AB ? PARTIAL HYMENECTOMY 05/07/2008 CURRENT MEDICATIONS Current Outpatient Medications Medication Sig Dispense Refill ? NIFEdipine ER (PROCARDIA XL) 30 mg 24 hr tablet Take 1 tablet by mouth once daily. 30 tablet 0 ? ferrous sulfate (IRON ORAL) Take by mouth. ? alcohol swabs (ALCOHOL PREP PADS) Use as directed to check glucose levels up to seven times daily. 200 Each 8 ? blood sugar diagnostic test strip Use as directed to check glucose levels up to seven times daily. 200 Strip 8 ? Blood-Glucose Meter Use as directed to check glucose levels up to seven times daily. 1 Each 0 ? Lancets Use as directed to check glucose levels up to seven times daily. 200 Each 8 ? aspirin, enteric coated (ECOTRIN LOW STRENGTH) 81 mg EC tablet Take 1 tablet by mouth once daily. 90 tablet 3 ? prental multivitamin 27 mg iron- 800 mcg tablet Take 1 tablet by mouth once daily. No current facility-administered medications for this visit. ALLERGIES: Clobetasol PERSONAL HISTORY: SOCIAL HISTORY Social History Tobacco Use ? Smoking status: Never Passive exposure: Never ? Smokeless tobacco: Never Vaping Use ? Vaping status: Never Used Substance Use Topics ? Alcohol use: No ? Drug use: No FAMILY HISTORY: FAMILY HISTORY FAMILY HISTORY Problem Relation Age of Onset ? Hypertension Mother ? Hypertension Father ? Blood Clots Father ? Vision loss Sister ? No Known Problems Sister ? Colon Cancer Maternal Grandmother ? Heart Maternal Grandfather [place] ? other (lymphoma) Maternal Grandfather ? Breast Cancer Paternal Grandmother ? Heart Paternal Grandfather ND ? other (leukemia) Paternal Grandfather REVIEW OF SYMPTOMS: GENERAL: denies fevers or chills ENDOCRINOLOGY: has not been on steroids Cardiology : denies palpitations or chest pain Respiratory: denies SOB or cough Hematology: denies history of prolonged bleeding or easy bruising or VTE Allergy: Denies history of personal or family history of allergy to anesthesia PHYSICAL EXAMINATION: VITALS: Blood pressure 146/89, weight 70.8 kg (156 lb), last menstrual period 07/17/2023, currently . GENERAL: The patient is well nourished, well hydrated in no acute distress. , The patient is oriented to time, place, and person. NECK: Supple. No lynphadenopathy, normal thyroid, no thyromegaly. LUNGS: Clear to auscultation bilaterally. no wheezes, rhonchi or rales HEART: Regular rate and rhythm, Normal heart sounds, and No murmurs or gallops abd- soft, nontender, gravid IMPRESSION: Estimated Date of Delivery: 04/22/24 preeclampsia, GDMA 1, adv. maternal age, previous c/s PLAN: The risks/benefits/alternatives and personal involved for the planned c/s and tubal were reviewed with the patient. Her questions were answered to her satisfaction and she desires to proceed. Consent was signed. I reviewed with her postop instructions and expectations. REviewed case w/ MFM, as is preeclampsia w/ meds and bp still borderline for severe recommend delivery at 36 weeks. I have reviewed and updated past medical and surgical history, medications and allergies Assessment & Plan Assessment/Plan (1) 36 weeks gestation of : (2) High risk multigravida in third trimester: (3) Advanced maternal age during in third trimester: (4) Previous delivery affecting : (5) Sterilization:
--- NOTE | 2024-03-25 07:51 | FALS_PTH ---
PATIENT: ELVIN DAVILA LOC: [facility] U#:[id number] AGE/SX: 39/F ROOM: WP010 RE03/25/[address]: Dr. Carolyne Packer MD : 1985 BED: 1 DIS: 03/27/2024 SPEC #: [id number] RECD: 03/25/24 09:22 STATUS: MIKE FREEMAN #: [id number] PRINCE: 03/25/24 07:[address]: Carolyne Packer DEPT: SURGICAL PATHOLOGY RECD BY: Ike Hernandez ENTERED: 03/25/24 11:03 SP TYPE: FALL TUBES OTHR DR: Dr. Gary Peters MD Tissues: A - Fallopian tube B - Placenta, NOS Procedures: Surgery Specimen Level II Surgery Specimen Level V HEADER OPERATION: Tubal ligation, delivery PRE-OP DIAGNOSIS: Sterilization, preeclampsia TISSUE SUBMITTED: A- Bilateral fallopian tubes * suture on right *, B- Placenta MICROSCOPIC DIAGNOSIS A. Bilateral fallopian tubes, salpingectomy: Bilateral fallopian tubes, no pathologic diagnosis. B. Placenta: Placental disc - third trimester placenta (550 gm). - A small focus of infarcted placenta in the membranes (1.2cm in diameter). This area is present separate from the main body of the placenta in the membrane. - Focal increased intervillous and perivillous fibrinodeposition. Membranes - no pathologic diagnosis. Umbilical cord - three blood vessels and no pathologic diagnosis. SJ: 03/29/2024 MICROSCOPIC DESCRIPTION Slides are reviewed. GROSS DESCRIPTION A. Received in fixative is one container labeled with the patient's name and designated bilateral fallopian tubes- suture in right. The specimen consists of bilateral fallopian tubes including fimbrial ends. Right fallopian tube measures 7.5 cm in length and 0.9 cm in diameter. Left fallopian tube measures 8cm in length and 1cm in diameter. Sections reveal unremarkable cut surfaces. Child And Adolescent Therapist sections are submitted in two cassettes: 1- right fallopian tube, 2- left fallopian tube. B. SPECIMEN: PLACENTA / CLINICAL INFORMATION: A. Weight: 2.695 kg B. Gestational Age: 36 weeks C. Sex: Male PLACENTAL WEIGHT (POST FIXATION): 550 gm PLACENTAL DIMENSIONS: 21 x 16 x 3 cm PLACENTAL SHAPE: Usual ovoid PLACENTAL WEIGHT FOR GESTATIONAL AGE: Within 10-99th percentile MEMBRANES - Present A. Insertion: Marginal B. Site of rupture from edge: 5 cm from edge of placental disc C. Color of membrane: Us-mendoza D. Abnormalities: A round us-white firm area noted in the membranes measuring 1.2cm in diameter. UMBILICAL CORD - Present A. Color: Us-mendoza B. Insertion: Central C. Length: 43 cm, after untying the knot. D. Diameter: 1.2 cm E. Number of vessels: Three F. Abnormalities: A loose true knot. Knot is noted toward the end of the umbilical cord. PLACENTAL DISC - Present A. Color of surface: Us-mendoza B. surface abnormalities: None C. Maternal cotyledons: Intact with minimal tears D. Attached retro placental clot: No clot E. Cut surface: Dark red and spongy F. Lesions: None G. Separate clot: Absent SECTIONS SUBMITTED: (6 cassettes) 1. Membrane roll, us white firm area in membranes 2. Cord, maternal end 3. Cord, end 4. Placental disc, and maternal surfaces 5. Placental disc, and maternal surfaces 6. Placental disc, and maternal surfaces SJ.mr 03/28/2024 TC:5 CPT: 23213,55428a6
--- NOTE | 2024-03-25 08:23 | OP.PCM_ITS ---
Assessment & Plan (1) Sterilization: (2) Previous delivery affecting : (3) Advanced maternal age during in third trimester: (4) High risk multigravida in third trimester: (5) Pre-eclampsia: Maternal Data Information DEBBIE Calculator Estimated Delivery Date Method Current WG Current Estimate 04/22/24 Manual 36w 0d Final DEBBIE: 04/22/24 Gestational age: 36 0/7 Operative Report (OB) Cecarean Details Procedure Type: low transverse (with bilateral salpingectomy) Date of Procedure: 03/25/24 Procedure Start Time: 07:48 Procedure Stop Time: 08:32 Time of Delivery: 07:51 Pre-Operative Diagnosis: Repeat Elective , Desires elective sterilization and Other Other Pre-Operative diagnosis: preeclampsia Post-Operative Diagnosis: Same as Pre-operative diagnosis Classification: Scheduled Type of Anesthesia: Spinal Special Medications: duramorph Antibiotic Given: Ancef 2 grams IV x1 Drain: Velazquez to straight drain Estimated Blood Loss: 700 Fluids Replaced: 1100 Findings Description of surgery: Insert delivery insert Surgical findings: The patient was taken to the operating room. She was prepped and draped in the dorsal supine position with a leftward tilt. A Pfannenstiel skin incision was made approximately 2 cm above the symphysis pubis and carried through to underlying layer fascia with the scalpel. The fascia was incised incised in the midline and extended laterally with the Marques scissors. The fascia was dissected off the rectus muscles with blunt and sharp dissection. The rectus muscles were in the midline and the peritoneum was entered bluntly. The peritoneal incision was stretched and the bladder blade was placed. The uterine incision was made in a low transverse fashion with the scalpel and extended superiorly and inferiorly with blunt dissection. The amniotic membranes were ruptured bluntly and clear amniotic fluid returned. The infant's head was brought to the incision in the flexed position and delivered without difficulty. The remainder of the infant was delivered with gentle traction and fundal pressure in the standard fashion. The mouth and nares were bulb suctioned. The cord was clamped and cut as the was stimulated. Cord clamping was delayed. The infant was handed off to the waiting nursing staff. The placenta was delivered with fundal massage and gentle traction in the standard fashion. The uterus was exteriorized and cleared of all clots and nicole ris. The cervix was dilated with a ring forcep. The uterine incision was closed with #1 Vicryl in a running locked fashion. Several #1 Vicryl [id number] sutures were needed through some bleeding sinuses to obtain hemostasis. The incision was examined and was found to be hemostatic. The left fallopian tube was identified and found followed out to the fimbriated end. The LigaSure device was used to clamp seal and transect the antimesenteric portion the tube to the cornual insertion where it was amputated. The same procedure was performed on the contralateral side and he is hemostasis of the pedicles was noted. The uterus was placed back into the peritoneal cavity and hemostasis was again confirmed. The rectus muscles were examined and any bleeding was Bovie cauterized. The parietal peritoneum and rectus muscles were closed en bloc with an 0 Vicryl running suture. The rectus fascia was examined and any bleeding was Bovie cauterized and the rectus fascia was closed with #1 PDS suture in a running standard fashion. The subcutaneous tissue was examining and any bleeding was Bovie cauterized. The subcutaneous tissue was reapproximated with 3-0 Vicryl suture. The skin was closed in a subcuticular fashion by the SWITCH OPERATORS SUPERVISOR and student with me present in the labor and delivery suite. I performed the remainder of the procedure with assistance. All sponge, lap, and needle counts were correct. The patient was taken to her room for recovery in a stable condition. Presentation: Vertex Amniotic Membrane Rupture Type: Artificial Amniotic Fluid Description: Clear Placental Delivery Description: Expressed Placenta Disposition: Sent to Pathology Specimen collected: Yes Description of specimen(s) removed: Bilateral fallopian tubes and placenta Cord Vessel Description: 3 Vessels Cord Entanglement: None and True Knot(s) (X 1) Nuchal Cord Compression: Without compression A gender: Male (5 pounds 15 ounces) (1 minute): 8 (5 minute): 9 Delayed Cord Clamping: Yes Cardiovascular Or Nurse wire brusher: Yes Assembler Show Motor: Marj Denny Tasks completed by assistant center director: Closing, Dissecting tissue, Hemostasis: Electrocautery and Retracting Additional assistant construction superintendent?: Yes Additional Manager Building #2: Rory Patel MS3 Tasks completed by assistant construction superintendent #2: Closing and Retracting Additional assistant construction superintendent?: No Complications Complications: No
[2024-03-25] MEDS: Oxytocin 15 Units/NS 250ml 15 UNITS/250 ML IV.SOLN 83 UNITS IV (08:45)
[2024-03-25] MEDS: Ketorolac 30 MG/ML Syringe IV ×3 (10:01→21:31)
[2024-03-25] MEDS: Senna/Docusate Sodium 1 Tablet PO (11:06)
[2024-03-25] MEDS: 0.9% Saline Lock 10 ML Syringe IV ×3 (13:02→21:31)
[2024-03-25 14:58] LABS: Bedside Glucose 94 mg/dL (74-106)
[2024-03-25] MEDS: Enoxaparin 40 MG/0.4 ML Syringe SC (19:41)
[2024-03-26 00:35] VITALS: BP 107/57; PULSE 83; RESP 16; TEMP 36.5; O2SAT 98
[2024-03-26] MEDS: Acetaminophen 500 MG Tablet 1000 MG PO ×4 (01:45→20:04)
[2024-03-26 03:10] VITALS: BP 102/65; PULSE 85; RESP 16; TEMP 36.5; O2SAT 97
[2024-03-26] MEDS: 0.9% Saline Lock 10 ML Syringe IV (03:41)
[2024-03-26] MEDS: Ketorolac 30 MG/ML Syringe IV (03:41)
[2024-03-26 06:14] LABS: Hematocrit 27.9 % (37-47); Hemoglobin 9.5 g/dL (12.0-15.0); Mean Corp Hgb Conc 34.1 g/dL (32-36); Mean Corpuscular Hgb 29.6 pg (27.0-32.0); Mean Corpuscular Volume 86.9 fL (81-99); Mean Platelet Vol. 10.4 fl (6.2-12.0); Platelet Count 205 K/mm3 (150-450); RBC Distribution Width CV 14.1 % (11.6-14.6); RBC Distribution Width SD 44.3 fl (35.1-43.9); Red Blood Count 3.21 M/mm3 (4.2-5.4); White Blood Count 10.5 K/mm3 (4.4-11.0)
[2024-03-26 06:47] LABS: Bedside Glucose 85 mg/dL (74-106)
[2024-03-26] MEDS: Senna/Docusate Sodium 1 Tablet PO (07:48)
[2024-03-26] MEDS: Ibuprofen 600 MG Tablet PO ×3 (07:49→20:05)
[2024-03-26 08:00] VITALS: BP 123/80; PULSE 93; RESP 16; TEMP 36.3
--- NOTE | 2024-03-26 08:28 | PCM.PN.OB ---
Subjective Subjective Doing well. Ambulating and voiding without difficulty. Mild lochia. Breast feeding. Objective Data Objective Data Vital Signs: Vital Signs Temp Pulse Resp BP Pulse Ox O2 Del Method 97.7 F L 85 16 102/65 97 Room Air 03/26/24 03:10 03/26/24 03:10 03/26/24 03:10 03/26/24 03:10 03/26/24 03:10 03/26/24 03:10 Oxygen Delivery Method Room Air Weight: 72.1 kg Body Mass Index (BMI) 32.1 Intake & Output: Intake and Output for Last 24 Hours 03/24/24 03/25/24 03/26/24 23:59 23:59 23:59 Intake Total 2270 / 2270 Output Total 3130 / 3130 Balance -860 / -860 Lab / Micro Data 03/26/24 05:59 03/25/24 05:25 Labs: Laboratory Results - last 24 hr 03/25/24 14:38: POC Glucose 94 03/26/24 05:55: POC Glucose 85 03/26/24 05:59: WBC 10.5, RBC 3.21 L, Hgb 9.5 L, Hct 27.9 L, MCV 86.9, MCH 29.6, MCHC 34.1, RDW Std Deviation 44.3 H, RDW Coeff of César 14.1, Plt Count 205, MPV 10.4 ROS Constitutional Constitutional: Denies fatigue, fever(s) or malaise Eyes Eyes: Denies change in vision ENT HEENT: Denies dizziness or headache(s) Cardiovascular Cardiovascular: Denies chest pain, dyspnea or lightheadedness Respiratory/Chest Respiratory/Chest: Denies cough or dyspnea Gastrointestinal Gastrointestinal: Denies change in bowel habits Genitourinary Genitourinary: Denies burning urination or genital lesions Integumentary Integumentary: Denies rash Neurologic Neurologic: Denies confusion, dizziness, headache(s), numbness or weakness Physical Exam Const alert General Appearance: cooperative GI GI Narrative: soft, moderate distention, fundus firm, appropriately tender. Abdominal bandage clean dry and intact Assessment & Plan (1) Pre-eclampsia: QUALIFIERS: Trimester: third trimester Qualified Code(s): O14.93 - Unspecified pre-eclampsia, third trimester (2) Sterilization: (3) S/P : PLAN: Plan BP greatly improved Routine care
[2024-03-26 14:04] VITALS: BP 139/79; PULSE 98; RESP 16; TEMP 36.1
[2024-03-26] MEDS: Enoxaparin 40 MG/0.4 ML Syringe SC (20:05)
[2024-03-26 20:17] VITALS: BP 136/81; PULSE 92; RESP 18; TEMP 36.5; O2SAT 98
[2024-03-26] MEDS: SimETHICONE 80 MG Chewable Tablet PO (22:27)
[2024-03-27] MEDS: Acetaminophen 500 MG Tablet 1000 MG PO ×2 (02:04→08:23)
[2024-03-27] MEDS: Ibuprofen 600 MG Tablet PO ×2 (02:04→08:23)
[2024-03-27 02:55] VITALS: BP 131/91; PULSE 70; RESP 16; TEMP 36.4; O2SAT 98
[2024-03-27] MEDS: SimETHICONE 80 MG Chewable Tablet PO (08:23)
[2024-03-27 08:27] VITALS: BP 136/83; PULSE 92; RESP 16; TEMP 36.3
--- NOTE | 2024-03-27 08:55 | PCM.PN.OB ---
Subjective Subjective Doing well. Ambulating and voiding without difficulty. Mild lochia. Breast feeding. No ROLLINS or vision disturbance. Has Procardia at home if needed. Discussed BP check within 72 hours. Has monitor at home. Objective Data Objective Data Vital Signs: Vital Signs Temp Pulse Resp BP Pulse Ox O2 Del Method 97.3 F L 92 16 136/83 H 98 Room Air 03/27/24 08:27 03/27/24 08:27 03/27/24 08:27 03/27/24 08:27 03/27/24 02:55 03/27/24 08:27 Oxygen Delivery Method Room Air Weight: 72.1 kg Body Mass Index (BMI) 32.1 Intake & Output: Intake and Output for Last 24 Hours 03/25/24 03/26/24 03/27/24 23:59 23:59 23:59 Intake Total 2270 / 2270 Output Total 3130 / 3130 Balance -860 / -860 Lab / Micro Data 03/26/24 05:59 03/25/24 05:25 ROS Constitutional Constitutional: Denies fatigue, fever(s) or malaise Eyes Eyes: Denies change in vision ENT HEENT: Denies dizziness or headache(s) Cardiovascular Cardiovascular: Denies chest pain, dyspnea or lightheadedness Respiratory/Chest Respiratory/Chest: Denies cough or dyspnea Gastrointestinal Gastrointestinal: Denies change in bowel habits Genitourinary Genitourinary: Denies burning urination or genital lesions Integumentary Integumentary: Denies rash Neurologic Neurologic: Denies confusion, dizziness, headache(s), numbness or weakness Physical Exam Const alert General Appearance: cooperative GI GI Narrative: soft, moderate distention, fundus firm, appropriately tender. Abdominal bandage clean dry and intact Assessment & Plan (1) S/P : (2) Pre-eclampsia: QUALIFIERS: Trimester: third trimester Qualified Code(s): O14.93 - Unspecified pre-eclampsia, third trimester (3) Sterilization: PLAN: Plan Discharge home with precautions Follow up 72 hours
--- NOTE | 2024-03-27 09:01 | DS.PCM_ITS ---
Providers Date of Admission: 03/25/24 Date of Discharge: 03/27/24 Primary Care Physician: Dr. Gary Peters MD Reason For Visit: REPEAT C SECTION Diagnosis Discharge Diagnosis (1) S/P : Status: Acute Code(s): Z98.891 - History of uterine scar from previous surgery (2) Pre-eclampsia: Status: Acute Code(s): O14.90 - Unspecified pre-eclampsia, unspecified trimester Qualifiers: Trimester: third trimester Qualified Code(s): O14.93 - Unspecified pre- eclampsia, third trimester (3) Sterilization: Status: Acute Code(s): Z30.2 - Encounter for sterilization Plan Discharge home with precautions Follow up 72 hours Medications at Discharge Home Medications 1 cap PO DAILY Check with primary doctor 08/13/22 iron 325 mg PO BID Check with primary doctor 08/13/22 nifedipine 30 mg tablet,extended release 24 hr (Procardia XL) 30 mg PO DAILY pre-ecl 03/19/24 Hospital Course Operations section Procedures None Summary of Care Provided Minutes Spent on Discharge: 20 Hospital Course: Repeat for pre E. Uncomplicated delivery and . Normal to low mild BP. No symptoms. Breast feeding Physical Exam Const alert General Appearance: cooperative GI GI Narrative: soft, moderate distention, fundus firm, appropriately tender. Abdominal bandage clean dry and intact Weight / BMI Weight Weight: 72.1 kg Body Mass Index (BMI) 32.1 ABG / Lab / Microbiology Data 03/26/24 05:59 03/25/24 05:25 D/C Instructions Discharge Diet: No restrictions May resume sexual activity in: 4-6 weeks Lifting Restrictions: 20 pounds Additional Activity Instructions: Nothing in the vagina for 4-6 weeks. You may return to work/school in 6 weeks. Call your doctor if your incision/area has: Continuous Slow Oozing, Sudden Increased Bleeding, Increased Pain/ Swelling, Increased Redness and Foul Smelling Discharge Call your doctor if you observe: Fever of 101 or Higher and Using more than 1 pad per hour (for 2 hours) Suture Line Care: Avoid Pulling/Pushing and Avoid Pinching/Bending Cleanse incision/area with: Keep Dressing Clean & Dry DC O2, CPAP, BIPAP Needs Home O2 Discharge instructions: No Please Follow Up With: Carolyne Packer MD When: Call to make an appointment for an incision check in 1-2 [phone]. You will need a post check in 6 weeks. Meaningful Use Info Meaningful Use Meaningful Use Diagnoses (Choose all that apply): None applicable Ischemic Stroke Statin Dosing Therapy Reference: STATIN DOSE THERAPY REFERENCE: * Patients > 75 years receive moderate or high dose statin therapy. * Patients 75 years or YOUNGER should receive HIGH intensity statin dose unless contraindicated. You will be required to document reason for non-treatment if statin daily dose does not meet guidelines. HIGH DOSE STATIN THERAPY DAILY Atorvastatin > than or = to 40 mg Rosuvastatin > than or = to 20 mg Amlodipine + Atorvastatin > than or = to 2.5/40 mg Ezetimibe + Simvastatin 10/80 mg Simvastatin 80mg Discharge Plan Admission Admit Date/Time: 03/25/24 05:14 Primary Reason for Your Visit: repeat Attending Provider: Carolyne Packer Primary Care Provider: Gary Peters Discharge Orders/Prescriptions Prescriptions: Continued 1 cap PO DAILY iron tablet 325 mg PO BID nifedipine [Procardia XL] 30 mg tablet extended release 24hr 30 mg PO DAILY Discontinued aspirin 81 mg capsule 81 mg PO DAILY Referrals / Follow Up: Gary Peters MD [Primary Care Provider] - Disposition Disposition (needs filled in before D/C Order can be placed): Home, Self Care
[2024-03-27] MEDS: Senna/Docusate Sodium 1 Tablet PO (09:53)
[2024-03-29 11:56] LABS: Pathology Specimen OB SEE PATHOLOGY REPORT
[2024-03-29 11:56] LABS: Pathology Specimen OB SEE PATHOLOGY REPORT
== END 2024-03-27 10:50 | disposition home or self-care (01) | DRG 785 ==
PROVIDERS: Admitting Provider Obstetrics & Gynecology; PCP Family Medicine Geriatric Medicine; Referring Provider Obstetrics & Gynecology; Visit Provider Obstetrics & Gynecology
PROC: 10D00Z1 Extraction of Products of Conception, Low, Open Approach (ICD-10-PCS; CPT 59514; principal; 2024-03-25 07:00)
DX: O14.94 Unspecified pre-eclampsia, complicating childbirth (principal); O24.420 Gestational diabetes mellitus in childbirth, diet controlled; O69.2XX0 Labor and delivery complicated by other cord entanglement, with compression, not applicable or unspecified; Z30.2 Encounter for sterilization; O34.211 Maternal care for low transverse scar from previous cesarean delivery; Z3A.36 36 weeks gestation of pregnancy; Z37.0 Single live birth
CPT/HCPCS: 59050; 82565; 82570; 82962; 84156; 84450; 84460; 84550; 85025; 85027; 86780; 86850; 86900; 86901; 88302; 88307; 99221; A4216; G0378; J2405